=== PATIENT | female | born 1960 | race Caucasian/White ===

== ENCOUNTER → 2024-08-31 06:31 | Outpatient (CLI) | payer OTHER, SELFPAY ==
--- NOTE | 2024-08-31 06:36 | DI.US.S_ITS ---
PROCEDURE: US PELVIC COMPLETE INDICATIONS: RIGHT OVARIAN MASS TECHNIQUE: Real-time scanning was performed of the pelvic organs, with image documentation. Additional endovaginal scanning was necessary due to incomplete visualization of the adnexal and endometrial structures by transabdominal scanning. COMPARISON: [facility], CR, XR CHEST 1 VIEW, 11/19/2023, 11:41. [facility], US, US PELVIC COMPLETE, 11/18/2023, 10:52. [facility], CT, CT ABDOMEN PELVIS WITHOUT CONTRAST, 11/17/2023, 18:31. Outside Facility, US, US PELVIC COMPLETE, 02/19/2024, 10:08. FINDINGS: Uterus: Uterus is anteverted and normal in size at 6.8 x 4.5 x 2.9 cm. The myometrium is heterogenous. The endometrium is indistinct and not well identified. Ovaries: Likely originating from the right ovary, there is a 7.8 x 6.7 x 5.9 cm predominantly solid mass with mild internal vascularity and irregular borders. Compared to 11/18/2023, the solid components have increased in conspicuity. The left ovary is not well identified. Other: The cervix is thickened and heterogenous with hypervascularity and possible intraluminal debris versus mass. Nabothian cysts are present at the cervix. IMPRESSION: Interval increase in size and solid components within a right ovarian mass, designated as O-RADS 5 (high risk; at least greater than 50 percent risk of malignancy). Gynecological consultation recommended. We strive to produce accurate, complete, and clear reports of imaging services. To assist us in improving patient care, this report was composed using standard report templates and voice recognition software. Therefore, it may contain abnormal punctuation, insertions and/or omissions. Occasional wrong-word or sound-alike substitutions may occur. Though we review the report and make efforts to correct it, we do recommend that the report be read carefully in proper context to recognize any text inaccuracies. Dictated by: Leo Rousseau M.D. on 09/05/2024 at 8:31 Approved by: Leo Rousseau M.D. on 09/05/2024 at 8:42
== END ==
LOC: US 06:35
PROVIDERS: Referring Provider Family Medicine; Visit Provider Family Medicine
DX: N83.9 Noninflammatory disorder of ovary, fallopian tube and broad ligament, unspecified (principal)
CPT/HCPCS: 76830; 76856